=== PATIENT | female | born 1990 | race Caucasian/White ===

== ENCOUNTER 2021-01-23 08:20 | Emergency (ER) | payer OTHER, SELFPAY ==
[2021-01-23 08:30] VITALS: BP 156/81; PULSE 105; RESP 16; TEMP 37.1; O2SAT 98
--- NOTE | 2021-01-23 08:32 | ED.URI ---
HPI - URI/Sore Throat General Chief Complaint: Upper Respiratory Infection Stated Complaint: fever x 3 days sinus and low energy Time Seen by Provider: 01/23/21 08:32 Source: patient and RN notes reviewed History of Present Illness HPI Narrative: Patient is a 30-year-old female who presents the urgent care with complaints of 3-day history of sinus congestion/pressure, fatigue, fever, body aches. Patient states that her kids had been sick last week with some allergy-like symptoms and mild diarrhea. Patient states that she is also been having some headaches. Reports of taking Benadryl, Tylenol and Aleve for her symptoms without much relief. Patient states she does have chronic intermittent allergies but never this bad . Patient does appear anxious and is slightly tearful. Denies of any shortness of breath but does report a mild cough. States that she has been Covid vaccinated and denies of any known exposure to Covid, strep or influenza. No other acute complaints. No acute distress noted. Patient aware of the plan of care. Some parts of this dictation were generated by voice recognition software and may contain typographical and/or grammatical inaccuracies. Related Data Home Medications Medication Instructions Recorded Confirmed ethynodiol diac-eth estradiol 1 tablet PO DAILY 01/23/21 01/23/21 [Bita (28)] Allergies Allergy/AdvReac Type Severity Reaction Status Date / Time No Known Allergies Allergy Verified 01/23/21 08:34 Review of Systems Review of Systems: Narrative: CONSTITUTIONAL: Reports of fevers and sweats EYES: Denies visual changes, redness. Reports of watery eyes ENT: Reports of sinus congestion and postnasal drainage CARDIOVASCULAR: Denies chest pain, palpitations, or edema. RESPIRATORY: Reports of nonproductive cough without dyspnea GASTROINTESTINAL: Denies abdominal pain, nausea, vomiting, or diarrhea. GENITOURINARY: Denies dysuria or hematuria. SKIN: Denies rash or itching. MUSCULOSKELETAL: Denies back pain, joint pain. Reports of fatigue and mild body aches NEUROLOGIC: Denies headache, numbness, or weakness. All other systems reviewed are negative, except as documented in HPI. PMFSH Comments At the time of my signature, I reviewed and agree with the nursing past medical, surgical, social, and family history. There is no relevant family history pertinent to the patient complaint. Exam Narrative: Exam Narrative: GENERAL: This is a well-nourished, well-developed patient, in no apparent distress. HEAD: normocephalic, atraumatic. Frontal sinus tenderness EYES: PERRL. Sclera clear/white. Vision is grossly intact. Clear tearing with mild injected conjunctive a EARS: External ears normal, auditory canals clear and without drainage, TMs normal without perforation. Hearing grossly intact. NOSE: External nose normal with no obvious nasal discharge, nares without redness, clear rhinorrhea. THROAT: Mucous membranes moist, posterior pharynx clear. Mild postnasal drainage NECK: Neck supple, non-tender without lymphadenopathy CARDIOVASCULAR: Regular rate and rhythm without murmurs, gallops, or rubs. RESPIRATORY: Clear to auscultation. Breath sounds equal bilaterally. No wheezes, rales, or rhonchi. SKIN: warm, intact with no suspicious lesions or rash, good texture and turgor. NEURO: awake, alert, and oriented to person, place and time. There were no obvious focal neurologic abnormalities. EXTREMITIES: No clubbing, cyanosis, or edema. Course Vital Signs Vital signs: Vital Signs Temperature 98.8 F 01/23/21 08:30 Pulse Rate 105 H 01/23/21 08:30 Respiratory Rate 16 01/23/21 08:30 Blood Pressure 156/81 H 01/23/21 08:30 Pulse Oximetry 98 01/23/21 08:30 Temperature 98.8 F 01/23/21 08:30 Pulse Rate 105 H 01/23/21 08:30 Respiratory Rate 16 01/23/21 08:30 Blood Pressure 156/81 H 01/23/21 08:30 Pulse Oximetry 98 01/23/21 08:30 Reviewed-patient is informed that they may have p
--- NOTE | 2021-01-23 09:26 | PC.NURSE ---
PT WAS UPSET THAT TECH USED A TEMPORAL SCANNER THERMOMETER SO TEMPERATURE WAS RETAKEN BY TECH USING AN ORAL THERMOMETER
== END 2021-01-23 09:12 | disposition home or self-care (01) ==
PROVIDERS: Emergency Provider Nurse Practitioner Family
DX: J32.9 Chronic sinusitis, unspecified (principal)
CPT/HCPCS: 87804; 99213; G0463